=== PATIENT | male | born 1960 | race Caucasian/White ===

== ENCOUNTER 2022-03-21 14:19 | Emergency (ER) | payer OTHER ==
[~2022-03-21] VITALS: Ht 175.3 cm; Wt 113.6 kg
[2022-03-21 14:39] LABS: BASOPHILS % (AUTO) 0.5 % (0.0-2.0); EOSINOPHILS % (AUTO) 0.1 % (1.0-6.0); HEMATOCRIT 42.4 % (41-53); HEMOGLOBIN 14.7 g/dL (13.5-17.5); LYMPHOCYTES # (AUTO) 1.4 K/uL (1.0-4.8); LYMPHOCYTES % (AUTO) 14.9 % (22.0-44.0); MEAN CORPUSCULAR HEMOGLOBIN 31.5 pg (26.0-34.0); MEAN CORPUSCULAR HGB CONC 34.6 G/dL (31.0-37.0); MEAN CORPUSCULAR VOLUME 91 fL (80-100); MONOCYTES # (AUTO) 0.4 K/uL (0.1-1.0); MONOCYTES % (AUTO) 4.7 % (2.0-9.0); NEUTROPHILS # (AUTO) 7.4 K/uL (1.8-7.7); NEUTROPHILS % (AUTO) 79.8 % (40.0-70.0); PLATELET COUNT (AUTO) 244 K/uL (150-450); RED BLOOD CELL COUNT(AUTO) 4.66 MIL/uL (4.50-5.90); RED CELL DISTRIBUTION WIDTH 14.5 % (11.5-14.5)
[2022-03-21 14:47] LABS: ANION GAP 17 mmol/L (8-16); CALCIUM, TOTAL 9.4 mg/dL (8.8-10.5); CARBON DIOXIDE 23 mmol/L (22-29); CHLORIDE 98 mmol/L (98-107); CREATININE 1.66 mg/dL (0.60-1.30); GLOMERULAR FILTR. RATE CALC 43 mL/min (>60); GLUCOSE,RANDOM 259 mg/dL (70-110); POTASSIUM 4.1 mmol/L (3.5-5.1); SODIUM SERUM 138 mmol/L (136-145); UREA NITROGEN, BLOOD 18 mg/dL (7-18)
[2022-03-21 14:52] LABS: ALANINE AMINOTRANSFERASE 38 U/L (12-78); ALBUMIN 4.4 g/dL (3.4-5.0); ALKALINE PHOSPHATASE 92 U/L (46-116); ASPARTATE AMINOTRANSFERASE 35 U/L (15-37); BILIRUBIN,TOTAL 0.4 mg/dL (0.1-1.0)
[2022-03-21 14:53] LABS: PROTHROMBIN TIME 10.5 SEC (9.4-11.6)
[2022-03-21 14:58] LABS: LACTIC ACID 3.6 mmol/L (0.4-2.0)
[2022-03-21 15:00] LABS: B-TYPE NATRIURETIC PEPTIDE 271 pg/mL (0-100)
[2022-03-21] MEDS ORDERED: SODIUM CHLORIDE 0.9% 1,000 ML IV ONE (15:00)
[2022-03-21 17:28] VITALS: BP 131/66
[2022-03-22] MEDS ORDERED: GABA-1181 PO (03:13)
[2022-03-22] MEDS ORDERED: LEVO25TA9 PO ×2 (03:13)
[2022-03-22] MEDS ORDERED: OXCA600T18 PO (03:13)
[2022-03-22] MEDS ORDERED: QUET300T19 PO (03:13)
[2022-03-22] MEDS ORDERED: OLAN10 PO (03:13)
== END 2022-03-21 17:34 | disposition left against medical advice (07) ==
LOC: EMS 14:21
DX: T40.2X1A Poisoning by other opioids, accidental (unintentional), initial encounter (principal); R09.02 Hypoxemia; R77.8 Other specified abnormalities of plasma proteins; Z79.899 Other long term (current) drug therapy; Y92.89 Other specified places as the place of occurrence of the external cause
CPT/HCPCS: 99285; 96360; 70450; 71045; 80053; 83605; 83880; 84484; 85025; 85610; 85730; 36415; 93005; J7030

== ENCOUNTER 2022-03-22 00:38 | Emergency (ER) | payer OTHER ==
[~2022-03-22] VITALS: Ht 177.8 cm; Wt 113.6 kg
[2022-03-22] MEDS ORDERED: ACETAMINOPHEN 500 MG TABLET PO ONE (01:15)
[2022-03-22 02:48] LABS: COVID AG,FIA SOURCE NASOPHARYNGEAL
[2022-03-22] MEDS ORDERED: LORazepam 1 MG TABLET PO ONE (03:00)
[2022-03-22 03:03] LABS: BASOPHILS % (AUTO) 0.3 % (0.0-2.0); EOSINOPHILS % (AUTO) 0 % (1.0-6.0); HEMATOCRIT 40.5 % (41-53); HEMOGLOBIN 13.8 g/dL (13.5-17.5); LYMPHOCYTES # (AUTO) 1.6 K/uL (1.0-4.8); LYMPHOCYTES % (AUTO) 6.7 % (22.0-44.0); MEAN CORPUSCULAR HEMOGLOBIN 31.3 pg (26.0-34.0); MEAN CORPUSCULAR HGB CONC 34.1 G/dL (31.0-37.0); MEAN CORPUSCULAR VOLUME 92 fL (80-100); MONOCYTES # (AUTO) 1.3 K/uL (0.1-1.0); MONOCYTES % (AUTO) 5.7 % (2.0-9.0); NEUTROPHILS # (AUTO) 20.3 K/uL (1.8-7.7); PLATELET COUNT (AUTO) 209 K/uL (150-450); RED CELL DISTRIBUTION WIDTH 14.4 % (11.5-14.5)
[2022-03-22 03:04] LABS: NEUTROPHILS % (AUTO) 87.3 % (40.0-70.0)
[2022-03-22] MEDS ORDERED: LEVO25TA9 PO ×2 (03:13)
[2022-03-22] MEDS ORDERED: OLAN10 PO (03:13)
[2022-03-22] MEDS ORDERED: QUET300T19 PO (03:13)
[2022-03-22] MEDS ORDERED: GABA-1181 PO (03:13)
[2022-03-22] MEDS ORDERED: OXCA600T18 PO (03:13)
[2022-03-22 03:15] LABS: ANION GAP 10 mmol/L (8-16); CALCIUM, TOTAL 9.1 mg/dL (8.8-10.5); CARBON DIOXIDE 25 mmol/L (22-29); CHLORIDE 97 mmol/L (98-107); CREATININE 1.41 mg/dL (0.60-1.30); GLUCOSE,RANDOM 98 mg/dL (70-110); POTASSIUM 4.2 mmol/L (3.5-5.1); SODIUM SERUM 132 mmol/L (136-145); UREA NITROGEN, BLOOD 21 mg/dL (7-18)
[2022-03-22] MEDS ORDERED: SODIUM CHLORIDE 0.9% 3,400 ML IV ONE (03:15)
[2022-03-22 03:18] LABS: GLOMERULAR FILTR. RATE CALC 51 mL/min (>60)
[2022-03-22 03:29] LABS: ALANINE AMINOTRANSFERASE 51 U/L (12-78); ALBUMIN 4.4 g/dL (3.4-5.0); ALKALINE PHOSPHATASE 80 U/L (46-116); ASPARTATE AMINOTRANSFERASE 101 U/L (15-37); BILIRUBIN,TOTAL 0.7 mg/dL (0.1-1.0); THYROID STIMULATING HORMONE 1.08 uIU/mL (0.36-3.74); TOTAL PROTEIN, SERUM 7.8 g/dL (6.4-8.2)
[2022-03-22 03:31] LABS: VALPROIC ACID < 3 mcg/mL (50-100)
[2022-03-22 03:35] VITALS: BP 110/66
== END 2022-03-22 03:23 | disposition left against medical advice (07) ==
LOC: EMS 00:44
DX: D72.829 Elevated white blood cell count, unspecified (principal); F41.9 Anxiety disorder, unspecified; F31.9 Bipolar disorder, unspecified; Z86.69 Personal history of other diseases of the nervous system and sense organs; Z20.822 Contact with and (suspected) exposure to COVID-19
CPT/HCPCS: 99283; 87426; 80053; 80164; 83880; 84443; 84484; 85025; 84145; 36415; G0480; J7030; 70450; 71045; 93005